=== PATIENT | female | born 1960 | race Caucasian/White ===

== ENCOUNTER → 2016-06-02 | Outpatient (CLI) | payer OTHER ==
[~2016-06-02] MED LIST: AMBI12.52 PO; AVAP150T31 PO; BACL-67 PO; CALTTAB11 PO; CYMB1CAP5 PO; CYMB60CA3 PO; IMIT100T PO; LEVO137T2 PO; METF1000 PO; METF500T PO; MULT1TAB10 PO; OSTETAB3 PO; PROT1TAB2 PO; TOPI50TA4 PO; TRAM-533 PO; VITA10006 PO; VITA100T20 PO; XANA1TAB PO
[2016-06-02 13:08] LABS: MEAN CORPUSCULAR HEMOGLOBIN 26.9 pg (27.0-33.0); MEAN CORPUSCULAR HGB CONC 31.5 g/dl (32.0-36.5); MEAN CORPUSCULAR VOLUME 85.5 fl (80.0-96.0); WHITE BLOOD COUNT 6.3 K/mm3 (4.0-10.0)
[2016-06-02 13:10] LABS: INR 0.86
[2016-06-02 13:44] LABS: ALBUMIN 3.6 GM/DL (3.2-5.2); ALBUMIN/GLOBULIN RATIO 1.24 (1.00-1.93); ALKALINE PHOSPHATASE 107 U/L (45-117); ALT/SGPT 25 U/L (12-78); ANION GAP 7 MEQ/L (8-16); AST/SGOT 22 U/L (15-37); BILIRUBIN,TOTAL 0.3 MG/DL (0.2-1.0); BLOOD UREA NITROGEN 16 MG/DL (7-18); CALCIUM LEVEL 8.4 MG/DL (8.5-10.1); CARBON DIOXIDE LEVEL 29 MEQ/L (21-32); CHLORIDE LEVEL 106 MEQ/L (98-107); CREATININE FOR GFR 0.84 MG/DL (0.55-1.02); GLOMERULAR FILTRATION RATE > 60.0 (>51); GLUCOSE, FASTING 126 MG/DL (70-105); SODIUM LEVEL 142 MEQ/L (136-145); TOTAL PROTEIN 6.5 GM/DL (6.4-8.2)
--- NOTE | 2016-06-02 15:19 | REP ---
Chest x-ray: Two views. History: Knee arthritis. Fatty liver. Findings: The lungs are well inflated and clear. The pleural angles are sharp bilaterally. Heart size is normal. Pulmonary vasculature is not increased. There are mild degenerative changes in the thoracic spine. There are clips in the right upper quadrant of the abdomen consistent with a previous cholecystectomy. Impression: No active cardiopulmonary disease. Signed by Franklyn Qureshi MD 06/02/2016 04:00 P
--- NOTE | 2016-06-02 17:59 | ECGEPIP ---
Stationary ECG Study [facility] Test Date: 2016-06-02 Pat Name: MISAEL BECERRA Department: Room: - Gender: F Authors Motivational: : 1960 Requested By: Fernando Tobin Order Number: [id number] Reading MD: Denny Cedeño Measurements Intervals [place] Rate: 64 P: 53 RI: 192 QRS: -3 QRSD: 98 T: 39 QT: 426 QTc: 441 Interpretive Statements SINUS RHYTHM QS pattern V1 and V2, and III and aVF Rule out prior septal/inferior injury Nonspecific ST/T-wave abnormalities No prior tracing for comparison. Clinical correlation advised. Electronically Signed On 06-02-2016 17:59:33 EDT by Denny Cedeño
== END ==
LOC: M ADMPAT 10:47
PROVIDERS: ATTEND Orthopaedic Surgery
DX: Z01.818 Encounter for other preprocedural examination (principal); M17.12 Unilateral primary osteoarthritis, left knee

== ENCOUNTER 2016-06-16 07:10 | Inpatient (IN) | payer OTHER ==
[2016-06-02 11:43] VITALS: BP 163/97
--- NOTE | 2016-06-11 13:36 | HPE ---
DATE OF ADMISSION: 06/16/2016 HISTORY OF PRESENT ILLNESS: This is a pleasant female with continuing symptomatic left knee osteoarthritis related to a work injury sustained on 03/02/2014. She has consented for a left total knee arthroplasty per Dr. Mahad Polanco. Medical optimization per Rosie Gaspar out of [facility], who recently referred the patient for a pharmaceutical stress test and is still awaiting results. X-rays are consistent advanced tricompartmental varus [id number] contact degenerative joint disease (DJD). ALLERGIES: None known to drugs. MEDICAL PROBLEM LIST INCLUDES: 1. Symptomatic left knee tricompartmental varus bone on bone contact DJD. 2. Diabetes. 3. Thyroid disease. 4. Obesity. PAST SURGICAL HISTORY: Includes: 1. Recent right knee meniscectomy. 2. Cholecystectomy. 3. Gastric bypass. 4. Lasix surgery. 5. section. 6. Thyroidectomy. 7. Tubal ligation. FAMILY HISTORY: Pertinent for diabetes, hypertension, cancer, heart disease. SOCIAL HISTORY: She is a former smoker, quit 10 years ago. Denies ethanol intake. REVIEW OF SYSTEMS: She denies chest pain, shortness of breath, dyspnea on exertion, fever, chills, malaise, upper respiratory or urinary tract symptoms. PHYSICAL EXAMINATION: Blood pressure 144/92, pulse 84, respirations 16, height 5 feet 3 inches, weight 240, blood pressure actually ranged from 99-84. On examination, she is a pleasant obese female in no acute distress. She is alert and oriented times three. Mood and affect are appropriate. She is ambulating slow steady with favoring of the right lower extremity, some antalgia about the left. Left knee has a varus osteoarthritic alignment with positive medial joint line tenderness. Crepitance is noted through flexion and extension , range is 0 to 100. She is stable about the collateral ligaments, patellar quad tendons without palpable defects. No popliteal fossa mass or pain. Patellofemoral joint is congruent, static and dynamic. Labs were reviewed. Nasal and sinus culture showed staph or normal edgar present. Prothrombin time 11.8, mean corpuscular hemoglobin 26.9. Mean corpuscular hemoglobin concentration 31.5. Red cell distribution width 15.0. Glucose fasting 126. Anion gap 7, calcium level 8.4. Ketone urine auto trace. Urine culture no growth. Chest x-ray showed no acute cardiopulmonary process as read by Dr. Franklyn Qureshi on 06/02/[address] [facility]. EKG was read by Dr. Denny Cedeño showing sinus rhythm, QS pattern V1-V2, and three AVF, rule out prior septal/inferior injury, nonspecific ST-T wave abnormalities. No prior tracing for comparison. Clinical correlation was advised. This was signed by Dr. Cedeño on 06/02/2016. IMPRESSION: 1. Left knee symptomatic degenerative joint disease. 2. The patient consented for left total knee arthroplasty per Dr. Mahad Polanco. 3. Medical optimization per Rosie Gaspar and a recent pharmaceutical stress test referral which we are still awaiting results. 4. On-call to OR, 2 grams IV Kefzol in OR. 5. Sequential compression devices (SCD) and thromboembolic deterrent stockings (TEDS) in OR. MTDD
[~2016-06-16] VITALS: Ht 160 cm; Wt 111.0 kg
[2016-06-16] MEDS ORDERED: ROPIvacaine 0.5% 30 ML INJECTION (J2795) As Ordered ONE (07:19)
[2016-06-16] MEDS ORDERED: ceFAZolin 1GM INJ (J0690) As Ordered ONE (07:20)
[2016-06-16] MEDS ORDERED: TRANEXAMIC ACID 100 MG/ML 10ML VIAL As Ordered ONE (07:20)
[2016-06-16] MEDS ORDERED: BUPIVACAINE HCL 0.5% 10 ML VIAL As Ordered ONE (07:20)
[2016-06-16] MEDS ORDERED: EPINEPHrine INJ 1 MG/ML 1ML VIAL/AMP As Ordered ONE (07:20)
[2016-06-16] MEDS ORDERED: LR 1,000 ML IV SCH ×4 (07:30→12:15)
[2016-06-16] MEDS ORDERED: ACETAMINOPHEN 500 MG TAB PO ONE (07:30)
[2016-06-16] MEDS ORDERED: COUM1TAB17 PO (07:34)
[2016-06-16] MEDS ORDERED: TYLE650T35 PO (07:57)
[2016-06-16] MEDS ORDERED: fentaNYL 100 MCG/2 ML INJECTION (J3010) As Ordered ONE ×2 (08:06→09:38)
[2016-06-16] MEDS ORDERED: MIDAZOLAM INJ 2 MG/2 ML VIAL (J2250) As Ordered ONE ×2 (08:06→08:08)
[2016-06-16] MEDS ORDERED: PROPOFOL 200 MG/20 ML VIAL As Ordered ONE (08:09)
[2016-06-16] MEDS ORDERED: LIDOCAINE 2% INJ 100 MG/5 ML SDV (FOR ANES.) As Ordered ONE (08:09)
[2016-06-16] MEDS ORDERED: ONDANSETRON 4MG/2ML VIAL (J2405) As Ordered ONE (08:13)
[2016-06-16] MEDS ORDERED: MIDAZOLAM INJ 2 MG/2 ML VIAL (J2250) IV ONE (09:15)
[2016-06-16] MEDS ORDERED: fentaNYL 100 MCG/2 ML INJECTION (J3010) IV ONE (09:15)
[2016-06-16] MEDS ORDERED: LIDOCAINE 1% MDV 20ML VIAL ONE (10:07)
[2016-06-16] MEDS ORDERED: dexameTHASONE 10 MG/1 ML VIAL PRES.FREE (J1100) ONE (10:07)
[2016-06-16] MEDS ORDERED: ROPIvacaine 0.5% 30 ML INJECTION (J2795) ONE (10:07)
--- NOTE | 2016-06-16 11:15 | RO ---
DATE OF PROCEDURE: 06/16/2016 PREPROCEDURE DIAGNOSIS: Left knee degenerative arthritis. POSTPROCEDURE DIAGNOSIS: Left knee degenerative arthritis. PROCEDURE: Left total knee arthroplasty using a size 2 cruciate retaining femoral component, 10 mm rotating platform, polyethylene insert and a size #2.5 tray with a 32 mm polyethylene button. All components were cemented. Prosthesis was made by [employer]. It was a PFC knee. SURGEON: Fernando Polanco MD [employer] MACHINE OPERATOR HELPER: Elijah Treviño PA-C ANESTHESIA: Left femoral nerve block with spinal anesthetic. COMPLICATIONS: None. ESTIMATED BLOOD LOSS: Less than 50 mL. DRAIN: Postoperative PainBuster catheter. DESCRIPTION OF PROCEDURE: After antibiotics were given intravenously preoperatively and a successful left femoral nerve block and spinal anesthetic was established, the tourniquet was placed on the left upper thigh and not inflated. The left lower extremity was then prepped and draped in the usual sterile fashion. The leg elevated. The tourniquet was inflated to 275 mmHg after an appropriate time-out had been obtained. A longitudinal incision was made for a medial parapatellar approach to the knee. Bovie cautery used to coagulate crossing vessels. Medial parapatellar arthrotomy was performed. Subperiosteal dissection around the proximal medial portion of the tibia was performed. Then, we everted the patella, flexed the knee, drilled down the center of the femoral canal, followed by the intramedullary kylie with the distal femoral cutting jig set at a 5-degree valgus cut for a left knee at 10-mm resection level. It was pinned into position. Distal femoral cut performed. Anterior-posterior sizing jig measured for a size 2. The 3-degree external rotation block was pinned, followed by the 4-in-1 block. We then performed anterior and posterior chamfer cuts performed, taking great care to protect the soft tissues. We then exposed the proximal tibia, used the extramedullary alignment jig, ensuring we were parallel to the mechanical axis. We referenced off the medial tibial condyle set at 4 mm resection level. It was pinned into that position. Secondary check with the extramedullary kylie showed that we appeared to be parallel to the mechanical axis. The proximal tibial osteotomy was then performed. The [facility] was placed laterally, and we performed a completion of medial meniscectomy, debridement of posterior and medial osteophytes. The [facility] was then placed medially, and we performed a completion of lateral meniscectomy with debridement of the posterior and lateral osteophytes. The spacer blocks were trialed, and the 10 mm fit the best with good symmetry between the flexion and extension gaps with good stability of varus and valgus stress testing. We then exposed the proximal tibia, sized for a #2.5 tray, which was then pinned into position, followed by the reamer and broach, and then the trial polyethylene and then the trial femoral component applied, brought the knee into extension, everted the patella, and performed a patellar osteotomy, sized for a 32 button. Did patellofemoral tracking with the trial and the prosthesis was anatomic. We then drilled the lug holes for the femur. Mr. Treviño mixed the cement on the back table as I prepared the bony surfaces for cementing with a copious amount of pulsatile lavage irrigant solution and made the surfaces were dried thoroughly. Mr. Treviño was also critical to the success of the procedure by helping to manipulate the knee, provide appropriate soft tissue retraction, so I could perform the operating smoothly and efficiently, as well as many other tasks, helped to the close the wound as well. We then cemented the tibial tray, removed excess cement, placed the polyethylene, cemented the femoral component, removed excess cement and brought the knee into extension, cemented the patellar button and removed excess cement, held the patella with the clamp in the knee full extension as we pulsatile lavage irrigated out the knee joint once again as we waited for the cement to harden. We then placed the tranexamic acid in the knee, closed the apex of the arthrotomy with two interrupted #1 polydioxanone suture (PDS) sutures, and then medial parapatellar area was closed with a single #1 PDS suture, and then a #1 Stratafix double-arm suture was placed in the capsule. The tourniquet was released. We placed the PainBuster and irrigated out the subdermal tissues with interrupted #2 PDS sutures. The skin was closed with saw, covered by Adaptic dry sterile bulky dressing. She was then transferred to the recovery room in stable condition. There were no intraoperative complications.
[2016-06-16] MEDS: HumuLIN R (REGULAR) INSULIN (NovoLIN R) **100U/ML** PER UNIT SC SCH ×3 (12:00→21:00)
[2016-06-16] MEDS ORDERED: METOCLOPRAMIDE INJ 10MG/2ML VIAL (J2765) IV PRN (12:00)
[2016-06-16] MEDS ORDERED: ONDANSETRON 4MG/2ML VIAL (J2405) IV PRN (12:00)
[2016-06-16] MEDS ORDERED: MEPERIDINE INJ 25 MG/ML VIAL (J2175) IV PRN (12:00)
[2016-06-16] MEDS ORDERED: PATIENT IS CURRENTLY ON AN ON-Q PAIN BUSTER PAIN RELIEF SYSTEM XX SCH (12:00)
[2016-06-16] MEDS ORDERED: fentaNYL 100 MCG/2 ML INJECTION (J3010) IV PRN (12:00)
[2016-06-16] MEDS: PERCOCET 5MG/325MG TAB PO PRN ×2 (12:02→12:50)
[2016-06-16] MEDS ORDERED: ACETAMINOPHEN TAB 650MG DOSE (2X325MG) PO PRN (12:15)
[2016-06-16] MEDS ORDERED: FLEET ENEMA PR PRN (12:15)
[2016-06-16] MEDS ORDERED: HYDROmorphone HCL 1 MG/ML SYRINGE (J1170) As Ordered ONE (14:54)
[2016-06-16] MEDS: HYDROmorphone HCL 1 MG/ML SYRINGE (J1170) IV PRN ×3 (15:00→21:38)
[2016-06-16 16:00] VITALS: BP 139/77
[2016-06-16 16:30] VITALS: BP 139/87
[2016-06-16] MEDS ORDERED: WARFARIN SOD 5 MG TAB PO SCH (17:00)
[2016-06-16 17:30] VITALS: BP 162/81
--- NOTE | 2016-06-16 18:12 | CR.PDOC ---
[facility] Consultation Consultation HOSPITALIST CONSULT NOTE Date of consult: 06/16/2016 Referring Provider: Dr. Danielle PCP: Rosie Gaspar M.D. and [facility] Reason for Consult: Medical management HPI: 55-year-old female with diabetes mellitus type 2, hypothyroidism, obesity status post gastric bypass, hypertension, esophageal spasms, GERD who underwent left total knee replacement with Dr. Danielle today. She is seen postoperatively, and states that she feels well. She denies any chest pain, vomiting, shortness of breath. Past medical history: diabetes mellitus type 2, hypothyroidism, obesity status post gastric bypass, hypertension, esophageal spasms, GERD, migraines Past surgical history: Right knee meniscectomy, cholecystectomy, gastric bypass , Lasik eye surgery, , thyroidectomy, BTL Family history: Diabetes mellitus, hypertension, cancer, heart disease Social history: The patient quit smoking approximately 10 years ago. She does not drink any alcohol Allergies: Morphine Review of systems: General: Negative for fever and chills Eyes: Negative for vision changes and ocular discharge ENT: Negative for sore throat and nose bleed Cardiovascular: Negative for chest pain and palpitations Respiratory: Negative for cough and shortness of breath GI: Negative for nausea, vomiting, diarrhea, constipation Musculoskeletal: Positive for chronic back pain Skin: Negative for rash Neuro: Negative for headache, dizziness, numbness, tingling Psych: Positive for depression, negative for suicidal ideation Endocrine: Negative for polyuria : Negative for dysuria Heme: Negative for Bleeding Home meds: See below Physical exam: Vital signs: Vital Sign - Last 24 Hours 06/16/16 06/16/16 06/16/16 06/16/16 07:26 08:29 08:31 08:35 Temp 97.9 Pulse 70 66 71 Resp 20 20 20 B/P 135/75 122/70 138/75 139/78 Pulse Ox 97 100 100 O2 Delivery Nasal Cannula Nasal Cannula O2 Flow Rate 2 2 06/16/16 06/16/16 06/16/16 06/16/16 08:40 08:45 08:50 10:56 Temp 98.9 Pulse 70 69 72 Resp 20 20 14 B/P 146/83 142/79 128/80 108/56 Pulse Ox 100 100 100 O2 Delivery Nasal Cannula Nasal Cannula Nasal Cannula O2 Flow Rate 2 2 2 06/16/16 06/16/16 06/16/16 4/24/17 11:10 11:22 11:40 11:53 Temp 98.5 97.8 97.8 Pulse 66 66 64 66 Resp 14 14 16 16 B/P 128/82 130/59 157/73 151/82 Pulse Ox 100 100 100 100 O2 Delivery Nasal Cannula Nasal Cannula Nasal Cannula Nasal Cannula O2 Flow Rate 2 2 2 2 06/16/16 06/16/16 06/16/16 06/16/16 12:02 12:05 12:24 12:50 Temp 97.9 Pulse 67 69 Resp 16 16 18 16 B/P 146/80 151/88 Pulse Ox 100 100 O2 Delivery Nasal Cannula Nasal Cannula O2 Flow Rate 2 2 06/16/16 06/16/16 06/16/16 06/16/16 12:51 13:27 14:03 15:00 Temp 98.2 98.0 97.2 Pulse 74 73 81 Resp 16 16 16 17 B/P 147/81 136/74 130/60 Pulse Ox 98 99 97 O2 Delivery Nasal Cannula Nasal Cannula Nasal Cannula O2 Flow Rate 2 2 2 06/16/16 06/16/16 06/16/16 06/16/16 15:10 15:34 16:00 16:00 Temp 98.3 97.3 Pulse 79 77 Resp 18 18 26 B/P 134/84 139/77 Pulse Ox 97 98 O2 Delivery Nasal Cannula Nasal Cannula Nasal Cannula O2 Flow Rate 2 2.0 2.0 06/16/16 06/16/16 06/16/16 16:30 17:30 17:57 Temp 97.4 97.3 Pulse 73 90 Resp 18 20 18 B/P 139/87 162/81 Pulse Ox 98 98 O2 Delivery Nasal Cannula Nasal Cannula O2 Flow Rate 2.0 2.0 Gen.: awake, alert, no acute distress Eyes: Extraocular movements intact, normal sclera ENT: Moist mucous membranes Cardiovascular: RRR, no murmurs rubs or gallops Lungs: clear to auscultation bilaterally, no rales, rhonchi, or wheeze Abdomen: Soft, NT/ND, normal BS Extremities: Intact pedal pulses Neuro: alert and oriented 3, normal speech, no focal deficits Psych: Normal mood with congruent affect Labs and radiology: None to review Assessment and plan: 55-year-old female with diabetes mellitus type 2, hypothyroidism, obesity status post gastric bypass, hypertension, esophageal spasms, GERD who underwent left total knee replacement with Dr. Danielle today. We have been consulted for medical management. 1. Diabetes mellitus type 2: We will hold the patient's home metformin and use sliding scale insulin while in-house. 2. Hypothyroidism: Continue home Synthroid. 3. Hypertension: Continue home Avapro. 4. Migraines: Continue home Topamax. 5. GERD: Continue home PPI. 6. Depression: Continue home Cymbalta. 7. Esophageal spasms: Continue home Xanax 8. Obesity status post gastric bypass: Continue home vitamin C and vitamin B12 DVT prophylaxis: As per orthopedics Thank you for this consult. We will continue to follow along with you. Vital Signs/I&O Vital Signs Date Time Temp Pulse Resp B/P Pulse Ox O2 Delivery O2 Flow Rate FiO2 06/16/16 17:57 18 06/16/16 17:30 97.3 90 162/81 98 Nasal Cannula 2.0 Laboratory Data Labs 24H Laboratory Tests 2 06/16/16 12:18: Bedside Glucose (Misc Panel) 108H 06/16/16 16:40: Bedside Glucose (Misc Panel) 95 CBC/BMP Laboratory Tests 06/16/16 07:28 Allergies Coded Allergies: Morphine (Unverified Adverse Reaction, Mild, vomiting, 06/02/16) Home Medications Scheduled (Xanax Xr) 1 Mg Tab 1 MG PO DAILY (Reported) (Osteo Bi-Flex Regular Str 250-200 mg) 1 Tab Tab 1 TAB PO DAILY (Reported) (Caltrate 600+D 600-800 mg-Unit) 1 Tab Tab 1 TAB PO DAILY (Reported) Ascorbic Acid (Vitamin C) 1,000 Mg Tab 1,000 MG PO DAILY (Reported) Baclofen (Baclofen) 20 Mg Tab 20 MG PO BID (Reported) Cyanocobalamin (Vitamin B12) 100 Mcg Tab 1,200 MCG PO DAILY (Reported) Duloxetine Hcl (Cymbalta) 30 Mg Cap 30 MG PO QPM (Reported) Duloxetine Hcl (Cymbalta) 60 Mg Cap 60 MG PO QAM (Reported) Irbesartan (Avapro) 150 Mg Tab 150 MG PO DAILY (Reported) Levothyroxine Sodium (Synthroid) 137 Mcg Tab 137 MCG PO DAILY (Reported) Metformin Hydrochloride (Metformin HCl) 500 Mg Tab 500 MG PO QAM (Reported) Metformin Hydrochloride (Metformin HCl) 1,000 Mg Tab 1,000 MG PO QPM (Reported ) Multivitamins (Multivitamin Adults) 1 Tab Tab 1 TAB PO DAILY (Reported) Pantoprazole Sodium Sesquihydr (Protonix) 40 Mg Tab #30 40 MG PO DAILY ( Reported) Topiramate (Topiramate) 50 Mg Tab 50 MG PO DAILY (Reported) Tramadol HCl (Tramadol Hydrochloride) 50 Mg Tab 100 MG PO BID (Reported) Warfarin Sod (Coumadin) 5 Mg Tab 5 MG PO 1T (Reported) Zolpidem Tartrate (Ambien Cr) 12.5 Mg Tab 12.5 MG PO QHS (Reported) Scheduled PRN Acetaminophen (Tylenol 8 Hour Arthritis) 650 Mg Tab 650 MG PO Q8H PRN PRN PAIN OR DYSPNEA (Reported) Sumatriptan Succinate (Imitrex) 100 Mg Tab 100 MG PO PRN PRN PRN MIGRAINE ( Reported) IBETH CARVALHO Jun 16, 2016 18:12
[2016-06-16 18:30] VITALS: BP 157/89
[2016-06-16 19:30] VITALS: BP 140/88
[2016-06-16 20:30] VITALS: BP 143/94
[2016-06-16] MEDS: TOPIRAMATE (TopAMAX) 25 MG TAB PO SCH (21:39)
[2016-06-16] MEDS: DULoxetine 30 MG CAP (CYMBALTA) PO SCH (21:39)
[2016-06-16] MEDS: ALPRAZolam 0.5 MG TAB PO SCH (21:40)
[2016-06-17 00:30] VITALS: BP 142/91
[2016-06-17] MEDS: HYDROmorphone HCL 1 MG/ML SYRINGE (J1170) IV PRN ×6 (00:45→20:41)
[2016-06-17 04:30] VITALS: BP 171/90
[2016-06-17] MEDS: LEVOTHYROXINE 0.137 MG TAB (137MCG) PO SCH (05:16)
[2016-06-17] MEDS ORDERED: PERCOCET 5MG/325MG TAB PO PRN ×2 (06:45)
[2016-06-17 07:28] LABS: MEAN CORPUSCULAR HEMOGLOBIN 27.5 pg (27.0-33.0); MEAN CORPUSCULAR HGB CONC 31.8 g/dl (32.0-36.5); MEAN CORPUSCULAR VOLUME 86.5 fl (80.0-96.0); WHITE BLOOD COUNT 6.6 K/mm3 (4.0-10.0)
[2016-06-17 07:37] LABS: INR 1.06
[2016-06-17 07:43] LABS: ANION GAP 7 MEQ/L (8-16); BLOOD UREA NITROGEN 10 MG/DL (7-18); CALCIUM LEVEL 8.1 MG/DL (8.5-10.1); CARBON DIOXIDE LEVEL 31 MEQ/L (21-32); CHLORIDE LEVEL 105 MEQ/L (98-107); CREATININE FOR GFR 0.87 MG/DL (0.55-1.02); GLOMERULAR FILTRATION RATE > 60.0 (>51); GLUCOSE, FASTING 130 MG/DL (70-105); POTASSIUM SERUM 4.1 MEQ/L (3.5-5.1); SODIUM LEVEL 143 MEQ/L (136-145)
[2016-06-17] MEDS ORDERED: ANEXSIA, NORCO 7.5MG/325MG TABLET(HYDROCODONE/APAP) PO PRN (07:45)
[2016-06-17] MEDS: MIRALAX *UNIT DOSE* 17GM PACKET PO SCH (08:34)
[2016-06-17] MEDS: HumuLIN R (REGULAR) INSULIN (NovoLIN R) **100U/ML** PER UNIT SC SCH ×4 (08:34→21:00)
[2016-06-17] MEDS: MOM 30ML SUSPENSION UDC PO SCH (08:34)
[2016-06-17] MEDS: CYANOCOBALAMIN 500 MCG TAB PO SCH (08:35)
[2016-06-17] MEDS: DULoxetine 30 MG CAP (CYMBALTA) PO SCH ×2 (08:35→20:40)
[2016-06-17] MEDS: ASCORBIC ACID 500 MG TAB PO SCH (08:35)
[2016-06-17] MEDS: IRBESARTAN 150 MG TAB PO SCH (08:36)
[2016-06-17] MEDS: ANEXSIA, NORCO 7.5MG/325MG TABLET(HYDROCODONE/APAP) PO PRN ×4 (08:36→22:54)
[2016-06-17] MEDS: SENOKOT S TAB PO SCH ×2 (08:36→20:40)
[2016-06-17] MEDS: PANTOPRAZOLE 40MG TAB (PROTONIX) PO SCH (08:37)
[2016-06-17] MEDS: ALPRAZolam 0.5 MG TAB PO SCH ×2 (08:37→20:40)
--- NOTE | 2016-06-17 09:11 | IPN ---
DATE OF SERVICE: 06/17/2016 A 55-year-old female seen at bedside this morning. She is complaining about some left knee pain, which has not been adequately controlled with the current medications. She denies nausea, vomiting. No chest pain. OBJECTIVE: Temperature is 98.1, pulse 78, respiratory rate is 12, blood pressure 171/90. She rates her pain scale as being greater than 9. SpO2 is 97% on room air. General: The patient appears to be in some moderate discomfort with her left knee pain but in no acute distress. She is alert. HEENT: Unremarkable. Lungs: Clear. Heart: Regular rate and rhythm. Abdomen: Soft. Extremities: No edema. She does have good sensation distally, and pulses are intact. LABORATORY DATA: White count is 6.6, hemoglobin 11, platelet count 254. Sodium 143, potassium 4.1, chloride 105, bicarbonate 31, anion gap 7, BUN is 10, creatinine 0.87, glucose is 130. INR is 1.06. ASSESSMENT AND PLAN: 1. Status post left knee total arthroplasty by Dr. Polanco. Doing well. We have been asked to continue to follow for medical management. 2. Diabetes. Her metformin has been on hold. She is on sliding scale insulin with adjustments according to her fingerstick blood sugars. 3. Hypothyroidism. Continue Synthroid. 4. Hypertension. Continue on Avapro. Will watch this for the time being since she is in quite a bit of discomfort, and her blood pressure did come down nicely with her pain control better yesterday. Will see how she trends today. 5. Migraines. Continue Topamax. 6. Gastroesophageal reflux disease (GERD). Continue on proton pump inhibitor (PPI). 7. Depression. Continue Cymbalta. No audiovisual hallucinations. No indication of suicidal ideation. 8. Esophageal spasm. Continue on Xanax as needed. 9. Obesity, status post gastric bypass. Continue with vitamin C, vitamin B12 supplements. 10. Deep venous thrombosis (DVT) prophylaxis, per orthopedics. DISPOSITION: Will continue to follow along for medical management issues. Again, we will follow her blood pressure to see if we need to make any further adjustments. However, for the time being, I suspect that this is related to her pain control needing to be adjusted. I did speak to orthopedics about this, and they are aware and will make appropriate adjustments as needed. DVT prophylaxis and physical therapy is per physical therapy, as well.
[2016-06-17 14:00] VITALS: BP 150/90
[2016-06-17] MEDS ORDERED: WARFARIN SOD 5 MG TAB PO ONE (17:00)
[2016-06-17] MEDS: TOPIRAMATE (TopAMAX) 25 MG TAB PO SCH (20:40)
[2016-06-17 22:00] VITALS: BP 187/81
[2016-06-18] MEDS: HYDROmorphone HCL 1 MG/ML SYRINGE (J1170) IV PRN ×4 (01:10→11:46)
--- NOTE | 2016-06-18 03:37 | REP ---
Clinical: Status post knee replacement. Technique AP and cross-table lateral views. Findings: The patient is status post left knee replacement with normal positioning and appearance to the femoral and tibial components. Overlying postsurgical changes appreciated. Impression: Status post left knee replacement. Signed by Nigel Chambers MD 06/18/2016 02:21 A
[2016-06-18] MEDS: ANEXSIA, NORCO 7.5MG/325MG TABLET(HYDROCODONE/APAP) PO PRN ×4 (05:13→22:25)
[2016-06-18] MEDS: LEVOTHYROXINE 0.137 MG TAB (137MCG) PO SCH (05:14)
[2016-06-18 06:00] VITALS: BP 156/82
[2016-06-18 06:53] LABS: MEAN CORPUSCULAR HEMOGLOBIN 27.7 pg (27.0-33.0); MEAN CORPUSCULAR HGB CONC 31.9 g/dl (32.0-36.5); MEAN CORPUSCULAR VOLUME 86.9 fl (80.0-96.0); RED CELL DISTRIBUTION WIDTH 15.2 % (11.5-14.5); WHITE BLOOD COUNT 6.3 K/mm3 (4.0-10.0)
[2016-06-18 06:58] LABS: INR 1.24
[2016-06-18 07:19] LABS: ANION GAP 8 MEQ/L (8-16); BLOOD UREA NITROGEN 9 MG/DL (7-18); CALCIUM LEVEL 7.6 MG/DL (8.5-10.1); CARBON DIOXIDE LEVEL 27 MEQ/L (21-32); CHLORIDE LEVEL 103 MEQ/L (98-107); CREATININE FOR GFR 0.72 MG/DL (0.55-1.02); GLOMERULAR FILTRATION RATE > 60.0 (>51); GLUCOSE, FASTING 118 MG/DL (70-105); POTASSIUM SERUM 4.2 MEQ/L (3.5-5.1); SODIUM LEVEL 138 MEQ/L (136-145)
--- NOTE | 2016-06-18 08:10 | IPN ---
DATE: 06/18/2016 55-year-old female seen at bedside. She is having still some left knee discomfort which I did discuss with orthopedics this morning and they are currently trying to modify her pain medicine regimen. Otherwise, she denies headache, lightheaded dizziness, cough, or shortness of breath. No nausea or vomiting, but she stated that she does have some diaphoresis this morning without any tachycardia or palpitations and she states she does get hot flashes at home and this is not unusual for early in the morning. OBJECTIVE: Temperature is 98.2, pulse 93, respiratory rate 16, blood pressure 156/82, SpO2 is 97% on room air. She rates her pain as a 9 out of 10. GENERAL: The patient is in no acute distress. She is otherwise pleasant. HEENT: Unremarkable. LUNGS: Clear. HEART: Regular rate and rhythm. ABDOMEN: Obese, soft, nontender. EXTREMITIES: No edema. Labs are pending at this time. ASSESSMENT/PLAN: 1. Status post left knee total arthroplasty by Dr. Polanco. She is being followed closely by orthopedics. 2. Diabetes. Metformin is on hold. Continue sliding scale insulin with fingerstick checks and further adjustments as needed. Continue consistent carbohydrate diet. 3. Hypothyroidism. Continue Synthroid. 4. Hypertension. Continue on Avapro. I am going to not make any adjustments at this time since her blood pressure likely is elevated secondary to her pain. Will see how she continues to trend. 5. Migraines. Continue with Topamax 6. Gastroesophageal reflux disease (GERD). Continue with proton pump inhibitor (PPI). 7. Depression. Stable on Cymbalta. No audiovisual hallucinations. No suicidal ideations. 8. Esophageal spasm. Continue Xanax as needed. 9. Obesity, status post gastric bypass surgery. Continue with vitamin C, vitamin B12 supplementation, and her obesity likely could prolong her medical management. 10. Deep vein thrombosis (DVT) prophylaxis. Per orthopedics. DISPOSITION: The patient does still continue to have quite a bit of pain with knee pain. Will defer to orthopedics regarding pain regimen, bowel regimen and physical therapy as well as anticoagulation. Again, will follow her blood pressure trending to see if this improves with her pain level improving.
[2016-06-18] MEDS: CYANOCOBALAMIN 500 MCG TAB PO SCH (08:39)
[2016-06-18] MEDS: MOM 30ML SUSPENSION UDC PO SCH (08:39)
[2016-06-18] MEDS: DULoxetine 30 MG CAP (CYMBALTA) PO SCH ×2 (08:39→21:43)
[2016-06-18] MEDS: PANTOPRAZOLE 40MG TAB (PROTONIX) PO SCH (08:40)
[2016-06-18] MEDS: MIRALAX *UNIT DOSE* 17GM PACKET PO SCH (08:40)
[2016-06-18] MEDS: ASCORBIC ACID 500 MG TAB PO SCH (08:40)
[2016-06-18] MEDS: SENOKOT S TAB PO SCH ×2 (08:40→21:43)
[2016-06-18] MEDS: IRBESARTAN 150 MG TAB PO SCH (08:40)
[2016-06-18] MEDS: ALPRAZolam 0.5 MG TAB PO SCH ×2 (08:41→21:43)
[2016-06-18] MEDS: HumuLIN R (REGULAR) INSULIN (NovoLIN R) **100U/ML** PER UNIT SC SCH ×4 (09:20→21:00)
[2016-06-18 14:00] VITALS: BP 128/73
[2016-06-18] MEDS ORDERED: HYDROmorphone HCL 1 MG/ML SYRINGE (J1170) IV PRN (15:15)
[2016-06-18] MEDS ORDERED: WARFARIN SOD 10 MG TAB PO ONE (17:00)
[2016-06-18] MEDS: zolPIDEM TARTRATE 10MG TAB PO PRN (21:43)
[2016-06-18] MEDS: TOPIRAMATE (TopAMAX) 25 MG TAB PO SCH (21:43)
[2016-06-18 22:00] VITALS: BP 127/68
[2016-06-19 06:00] VITALS: BP 149/73
[2016-06-19] MEDS: ANEXSIA, NORCO 7.5MG/325MG TABLET(HYDROCODONE/APAP) PO PRN ×5 (06:13→23:10)
[2016-06-19] MEDS: LEVOTHYROXINE 0.137 MG TAB (137MCG) PO SCH (06:14)
[2016-06-19 07:12] LABS: MEAN CORPUSCULAR HGB CONC 31.1 g/dl (32.0-36.5); MEAN CORPUSCULAR VOLUME 86.9 fl (80.0-96.0); RED CELL DISTRIBUTION WIDTH 14.9 % (11.5-14.5); WHITE BLOOD COUNT 5.7 K/mm3 (4.0-10.0)
[2016-06-19 07:22] LABS: INR 1.81
[2016-06-19 07:45] LABS: ANION GAP 8 MEQ/L (8-16); BLOOD UREA NITROGEN 13 MG/DL (7-18); CALCIUM LEVEL 7.9 MG/DL (8.5-10.1); CARBON DIOXIDE LEVEL 28 MEQ/L (21-32); CHLORIDE LEVEL 106 MEQ/L (98-107); CREATININE FOR GFR 0.83 MG/DL (0.55-1.02); GLOMERULAR FILTRATION RATE > 60.0 (>51); GLUCOSE, FASTING 138 MG/DL (70-105); POTASSIUM SERUM 4.1 MEQ/L (3.5-5.1); SODIUM LEVEL 142 MEQ/L (136-145)
[2016-06-19] MEDS ORDERED: COUM2.5T11 PO (08:11)
[2016-06-19] MEDS ORDERED: VICO7.5T11 PO (08:11)
[2016-06-19] MEDS: CYANOCOBALAMIN 500 MCG TAB PO SCH (08:37)
[2016-06-19] MEDS: DULoxetine 30 MG CAP (CYMBALTA) PO SCH ×2 (08:37→21:34)
[2016-06-19] MEDS: MOM 30ML SUSPENSION UDC PO SCH (08:37)
[2016-06-19] MEDS: ASCORBIC ACID 500 MG TAB PO SCH (08:37)
[2016-06-19] MEDS: PANTOPRAZOLE 40MG TAB (PROTONIX) PO SCH (08:37)
[2016-06-19] MEDS: MIRALAX *UNIT DOSE* 17GM PACKET PO SCH (08:37)
[2016-06-19] MEDS: SENOKOT S TAB PO SCH ×2 (08:38→21:34)
[2016-06-19] MEDS: ALPRAZolam 0.5 MG TAB PO SCH ×2 (08:38→21:33)
[2016-06-19] MEDS: IRBESARTAN 150 MG TAB PO SCH (08:38)
[2016-06-19] MEDS: HumuLIN R (REGULAR) INSULIN (NovoLIN R) **100U/ML** PER UNIT SC SCH ×4 (08:39→21:00)
[2016-06-19 14:00] VITALS: BP 125/68
--- NOTE | 2016-06-19 14:26 | IPN ---
DATE: 06/19/2016 A 55-year-old female seen at bedside, resting comfortably. No complaints other than knee pain. Denies chest pain, nausea, or vomiting. She is tolerating her breakfast meal. OBJECTIVE: Temperature is 97.6, pulse 86 and regular, respiratory rate 18, blood pressure 149/73, SPO2 is 97% on room air. GENERAL: The patient appears to be in no acute distress, alert and oriented. HEENT: Unremarkable. LUNGS: Clear. HEART: Regular rate and rhythm. ABDOMEN: Soft. EXTREMITIES: No edema. No calf tenderness. LABORATORY DATA: White count 5.7, hemoglobin 10.6, platelets 256. Sodium 142, potassium 4.1, chloride 106, bicarbonate 20, anion gap 8, BUN is 13, creatinine 0.83, glucose 138, INR 1.81. ASSESSMENT AND PLAN: 1. Status post left knee total arthroplasty, defer to orthopedics. 2. Diabetes, metformin on hold. Continue with sliding scale insulin, consistent-carbohydrate diet, and fingersticks for adjustments. 3. Hypothyroidism. Continue with Synthroid. 4. Hypertension, stable. We will continue to follow with no further adjustments unless needed. 5. Migraines. Continue Topamax. 6. Gastroesophageal reflux disease (GERD). Stable on proton pump inhibitor (PPI). 7. Depression. Stable on Cymbalta. 8. Esophageal spasm, on Xanax. 9. Obesity which could complicate her medical care. She is status post gastric bypass surgery. Continue with vitamin C, vitamin B12 supplementation. 10. Deep vein thrombosis (DVT) prophylaxis, per orthopedics. DISPOSITION: The patient does appear to be doing well from a medical standpoint. We will defer to orthopedics regarding bowel regimen, pain control, physical therapy and anticoagulation.
[2016-06-19] MEDS ORDERED: WARFARIN SOD 5 MG TAB PO ONE (17:00)
[2016-06-19] MEDS: TOPIRAMATE (TopAMAX) 25 MG TAB PO SCH (21:33)
[2016-06-19] MEDS: zolPIDEM TARTRATE 10MG TAB PO PRN (21:33)
[2016-06-19 22:00] VITALS: BP 159/88
[2016-06-20] MEDS: LEVOTHYROXINE 0.137 MG TAB (137MCG) PO SCH (05:26)
[2016-06-20] MEDS: ANEXSIA, NORCO 7.5MG/325MG TABLET(HYDROCODONE/APAP) PO PRN (05:27)
[2016-06-20 06:00] VITALS: BP 143/76
[2016-06-20 07:28] LABS: INR 1.78
[2016-06-20] MEDS: SENOKOT S TAB PO SCH (08:21)
[2016-06-20] MEDS: ASCORBIC ACID 500 MG TAB PO SCH (08:21)
[2016-06-20 08:22] VITALS: BP 143/76
[2016-06-20] MEDS: CYANOCOBALAMIN 500 MCG TAB PO SCH (08:22)
[2016-06-20] MEDS: ALPRAZolam 0.5 MG TAB PO SCH (08:22)
[2016-06-20] MEDS: IRBESARTAN 150 MG TAB PO SCH (08:22)
[2016-06-20] MEDS: HumuLIN R (REGULAR) INSULIN (NovoLIN R) **100U/ML** PER UNIT SC SCH (08:22)
[2016-06-20] MEDS: DULoxetine 30 MG CAP (CYMBALTA) PO SCH (08:22)
[2016-06-20] MEDS: PANTOPRAZOLE 40MG TAB (PROTONIX) PO SCH (08:22)
[2016-06-20] MEDS: MIRALAX *UNIT DOSE* 17GM PACKET PO SCH (08:23)
[2016-06-20] MEDS: MOM 30ML SUSPENSION UDC PO SCH (08:23)
--- NOTE | 2016-06-20 09:44 | DSES ---
DATE OF ADMISSION: 06/16/2016 DATE OF DISCHARGE: 06/20/2016 ATTENDING PHYSICIAN: Fernando Polanco MD ADMITTING DIAGNOSIS: Left knee degenerative arthritis. OTHER DIAGNOSES: 1. Diabetes. 2. Hypothyroid. 3. Hypertension. 4. Gastroesophageal reflux disease. 5. Migraines. 6. Depression. 7. Esophageal spasm. 8. Obesity status post gastric bypass. DISCHARGE DIAGNOSIS: Left knee degenerative arthritis status post left total knee arthroplasty. HISTORY OF PRESENT ILLNESS: Patient is a 55-year-old female with continuing left knee pain and stiffness. She failed to improve with conservative measures so she consented for an elective total knee arthroplasty on the left with Dr. Polanco. OPERATION PERFORMED: Left total knee arthroplasty. HOSPITAL COURSE: The patient underwent a left total knee arthroplasty under spinal anesthesia which was uneventful. She was up with physical therapy per their protocol and weightbearing as tolerated on the left lower extremity. Patient was transferred to the group home and discharged on oral pain medications. She will resume her preoperative medications and diet. She will take Coumadin and use her thromboembolic deterrent stockings for 30 days postoperatively to prevent deep venous thrombosis. She will followup in our office in approximately 12-14 days for a wound check and staple removal. She is encouraged to contact our office sooner if there is any increased pain, drainage , bleeding, redness, numbness or tingling in her leg, fever greater than 101 degrees, or any other concerns. Please see medical record for additional details. [place]
[2016-06-20] MEDS ORDERED: WARFARIN SOD 5 MG TAB PO ONE (17:00)
== END 2016-06-20 09:11 | disposition home health service (06) | DRG 302 ==
LOC: M OR 07:10 → M MS5PR 15:45
PROVIDERS: ADMIT Orthopaedic Surgery; ATTEND Orthopaedic Surgery
PROC: 0SRD0J9 Replacement of Left Knee Joint with Synthetic Substitute, Cemented, Open Approach (ICD-10-PCS; principal; 2016-06-16 09:45)
DX: M17.12 Unilateral primary osteoarthritis, left knee (principal); Z68.41 Body mass index [BMI] 40.0-44.9, adult; I10 Essential (primary) hypertension; E66.9 Obesity, unspecified; E03.9 Hypothyroidism, unspecified; K21.9 Gastro-esophageal reflux disease without esophagitis; E11.9 Type 2 diabetes mellitus without complications; G40.909 Epilepsy, unspecified, not intractable, without status epilepticus; K22.4 Dyskinesia of esophagus; Z98.84 Bariatric surgery status; Z87.891 Personal history of nicotine dependence; Z79.899 Other long term (current) drug therapy